=== PATIENT | male | born 2000 | race African-American/Black ===

== ENCOUNTER 2023-01-09 11:12 | Emergency (ER) | payer OTHER ==
[~2023-01-09] VITALS: Ht 170.2 cm; Wt 68.0 kg
[2023-01-09 11:26] VITALS: BP 136/78; TEMP 98.2
== END 2023-01-09 13:08 | disposition home or self-care (01) ==
LOC: ED 11:12
PROC: 0HQLXZZ Repair Left Lower Leg Skin, External Approach (ICD-10-PCS; principal; 2023-01-09)
DX: S81.812A Laceration without foreign body, left lower leg, initial encounter (principal); S80.12XA Contusion of left lower leg, initial encounter; W45.8XXA Other foreign body or object entering through skin, initial encounter
CPT/HCPCS: 90471; 90715; 99283